=== PATIENT | male | born 1965 | race Caucasian/White ===

== ENCOUNTER 2022-01-29 10:44 | Outpatient (CLI) | payer BC, SELFPAY ==
[2022-01-29 10:51] VITALS: BP 142/84; PULSE 72; RESP 16; O2SAT 97
[2022-01-29] MEDS: TETRACAINE 0.5% OPHTH 1 DROP EYE-LEFT ×3 (10:55→11:42)
[2022-01-29] MEDS: BRIMONIDINE TARTRATE 0.2% OPHTH 1 DROP EYE-LEFT ×2 (10:57→11:49)
--- NOTE | 2022-01-29 13:05 | W.PM.OPTPROC ---
Procedure Note Date of procedure: 01/29/22 Will [facility] bill your pro fee for this procedure?: Yes Procedure Description: SURGEON: Cheryl Rosenthal MD PREOPERATIVE DIAGNOSIS: Posterior capsular opacity, left eye POSTOPERATIVE DIAGNOSIS: Posterior capsular opacity, left eye PROCEDURE: YAG laser capsulotomy, left eye ANESTHESIA: Topical. ESTIMATED BLOOD LOSS: None PATHOLOGY SPECIMEN: None COMPLICATIONS: None INDICATIONS: See consult note for details. The risks, benefits and alternatives of the procedure were explained to the patient, who elected to proceed and signed informed consent to do so. PROCEDURE: The patient was brought to the pre-holding area where the left eye was identified as the operative eye. I placed my initials above this eye. The patient received 2 sets of 1 drop of 0.5% tetracaine and 1 drop of 1% tropicamide. They also received 1 drop of 0.2% brimonidine. They received 1 drop of 0.5% tetracaine immediately prior to bringing them back for the procedure. The patient was then brought to the procedure room where the left eye was again identified as the operative eye. A YAG Reinier capsulotomy lens was placed on the eye. The laser was administered using a total number of 11 shots with an energy of 2.4 mJ per shot for a total energy of 26 mJ. The patient tolerated the procedure well. DISPOSITION: The patient was taken back to the pre-holding area and given 1 drop of 0.2% brimonidine in the left eye. They were discharged to home in stable condition. The patient was instructed to call me or go to the emergency department with any sudden change, including dramatic loss of vision, severe pain in the eye or eyebrow region, nausea, or vomiting. The patient was instructed to use the 0.2% brimonidine 1 drop 2 times a day in the left eye for 1 week. The patient will follow up in the clinic in 1-2 weeks Surgeon: Cheryl Rosenthal MD
== END 2022-01-29 11:50 | disposition home or self-care (01) ==
LOC: EYE PRC 10:44
PROVIDERS: PCP Family Medicine; Visit Provider Ophthalmology
DX: H26.9 Unspecified cataract (principal)
CPT/HCPCS: 66821; A9270

== ENCOUNTER 2022-04-09 13:00 | Outpatient (CLI) | payer BC, SELFPAY ==
[2022-04-09 10:37] LABS: Albumin* 4.4 g/dL (3.3-5.0)
[2022-04-09 10:38] LABS: Chloride* 109 mmol/L (96-114); Potassium* 4.7 mmol/L (3.6-5.1); Sodium* 142 mmol/L (135-149)
[2022-04-09 10:40] LABS: Aspartate Amino Transferase* 30 U/L (12-35); Bilirubin Total* 0.6 mg/dL (0.1-1.5); Carbon Dioxide* 29 mmol/L (20-32); Creatinine* 0.8 mg/dL (0.5-1.5); Estimated Glomerular Filt Rate 104 ml/min
[2022-04-09 10:41] LABS: Alanine Aminotransferase* 42 U/L (4-50); Alkaline Phosphatase* 82 U/L (40-150); Blood Urea Nitrogen* 15 mg/dL (7-30); Calcium* 9.5 mg/dL (8.4-10.6); Glucose* 105 mg/dL (60-115); HDL Cholesterol* 55 mg/dL (>=40); Triglycerides* 75 mg/dL (40-149)
[2022-04-09 11:13] LABS: PSA Screen* 2.28 ng/mL (0.10-4.00)
[2022-04-09 19:09] LABS: Cholesterol* 146 mg/dL (90-199); LDL Cholesterol Calculated 76 mg/dL (<100)
== END 2022-04-09 13:01 | disposition home or self-care (01) ==
PROVIDERS: PCP Family Medicine; Visit Provider Family Medicine
DX: Z00.00 Encounter for general adult medical examination without abnormal findings (principal); E78.5 Hyperlipidemia, unspecified; R73.01 Impaired fasting glucose; Z12.5 Encounter for screening for malignant neoplasm of prostate
CPT/HCPCS: 80053; 80061; 84153

== ENCOUNTER 2023-04-13 07:25 | Outpatient (CLI) | payer BC, SELFPAY ==
--- OUTSIDE RECORDS SUMMARY | 2023-04-15 09:34 | XMS_ITS | Clinical Summary ---
Author Name Unknown Organization [employer] [facility] [employer] Address [place], [place] [address] Care Team Providers Care Tomato Grader Name Role Phone Tomy Doe MD Primary Care Provider [phone] Allergies No known active allergies Medications Medication Sig Dispensed Refills Start Date End Date Status warfarin (COUMADIN) 7.5 mg tablet Take 7.5 mg by mouth once daily. 11.25 mg Tuesdays & , all other days 7.5 mg 0 04/14/2012 Active atropine (ISOPTO ATROPINE) 1 % ophthalmic solution Place 1 drop into right eye at bedtime 2 mL 0 02/23/2020 Active erythromycin ophthalmic ointment 0.5% Place 1 strip into right eye 2 times daily 3.5 g 0 02/23/2020 Active prednisoLONE acetate 1% ophthalmic (ECONOPRED PLUS, PRED FORTE, OMNIPRED) suspension Place 1 drop into right eye 4 times daily. SHAKE WELL 10 mL 0 02/23/2020 Active ibuprofen (ADVIL; MOTRIN) 600 mg tablet Take 1 tablet by mouth 3 times daily with meals. 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 Immunizations Name Administration Dates Next Due AMB Influenza, IIV4 PF (=>6 mos Flulaval,Fluzone Fluarix)(Flu Clinic Only) 02/09/2014 Tdap 09/18/2008 Family History Medical History Relation Name Comments Cancer-prostate Father early 60s Good Health Father Diabetes Maternal Grandmother Good Health Mother Other Paternal Uncle prostatic hyp ertrophy Relation Name Status Comments Father Alive Maternal Grandmother Mother Alive Paternal Uncle Social History Tobacco Use Types Packs/Day Years Used Date Smoking Tobacco: Never Smokeless Tobacco: Never Tobacco Cessation:Counseling Given: Yes Alcohol Use Standard Drinks/Week Comments Yes 0 (1 standard drink = 0.6 oz pur e alcohol) 2-3 drinks a week Sex and Gender Information Value Date Recorded Sex Assigned at Not on file Gender Identity Not on file Sexual Orientation Not on file Obstetrics History Last Filed Vital Signs Vital Sign Reading Time Taken Comments Blood Pressure 124/77 02/23/2020 11:30 AM JANITORIAL CLEANER Pulse 53 02/23/2020 11:30 AM JANITORIAL CLEANER Temperature 36.1 ??C (97 ??F) 02/23/2020 8:24 AM JANITORIAL CLEANER Respiratory Rate 16 02/23/2020 11:30 AM JANITORIAL CLEANER Oxygen Saturation 98% 02/23/2020 11:30 AM JANITORIAL CLEANER Inhaled Oxygen Concentration - - Weight 95.3 kg (210 lb) 08/13/2015 6:20 PM CDT Height 185.4 cm (6' 1) 08/13/2015 6:20 PM CDT Body Mass Index 27.71 08/13/2015 6:20 PM CDT Plan of Treatment Health Maintenance Due Date Last Done Comments COVID-19 vaccine series (#1) 1965 HIV for age 15-65 1980 Hepatitis C screening for ag e 18-79 06/08/1983 Colonoscopy through age 75 2010 Zoster (shingles) series for age 50+ (1 of 2) 06/08/2015 BMI (ht and wt on same day) for age 18+ 07/08/2016 07/09/2015 Depression screening for age 12+ 07/08/2016 07/09/2015 Lipids for age 45-75 04/28/2017 04/28/2012, 11/23/2008 Tetanus booster 09/18/2018 09/18/2008 Influenza for age 50-64 12/05/2022 02/09/2014 Tdap Completed 09/18/2008 Pneumococcal series for age 6-64 Aged Out No longer eligible b ased on patient's age to complete this topic Medical Devices Implanted Type Area Consumer Safety Inspector Device Identifier Shelf Expiration Date Model / Serial / Lot Strip Silcn 0.75x3.5x125 [id number] - [id number] Implanted:Qty: 1 on 09/18/2009 at [facility] Left: Eye [employer] 10/05/2015 S2970# / / [id number] Sleeve Silcn 1.00i.D.X2.1mm Od Sty70 S3018 [employer]ian - [id number] Implanted:Qty: 1 on 09/18/2009 at [facility] Left: Eye [employer] 10/05/2015 S3018# / / [id number] Lens Iol Zcb00 20.5 - [id number] Implanted:Qty: 1 on 08/15/2015 by Kendall Leonard MD at [facility] Right: Eye [employer] 06/14/2019 ZCB00# / [id number] / Band Circling .60x2.2k237ti X [id number] [employer]ian - [id number] Implanted:Qty: 1 on 02/23/2020 by Yuan Maya MD at [facility] Right: Eye [employer] 12/23/2025 S2987# / / [id number] Tire 7.0/2.5mm [id number] Groove-Concave S2986 [employer]ian - [id number] Implanted:Qty: 1 on 02/23/2020 by Yuan Maya MD at [facility] Right: Eye [employer] 10/23/2023 S2986# / / [id number] Sleeve Silcn 1.00i.D.X2.1mm Od Sty70 S3018 [employer]ian - [id number] Implanted:Qty: 1 on 02/23/2020 by Yuan Maya MD at [facility] Right: Eye [employer] 05/25/2026 S3018# / / [id number] Advance Directives Latest Code Status on File Code Status Date Activated Date Inactivated Comments Full Code 02/23/2020 8:02 AM 02/23/2020 1:55 PM Question Answer Comments Code Status Discussion: Not Discussed Code Status History Code Status Date Activated Date Inactivated Comments Full Code 08/15/2015 1:53 PM 08/15/2015 5:41 PM Full Code 09/18/2009 3:41 PM 09/18/2009 8:45 PM Care Teams Tomato Grader Relationship Specialty Start Date End Date Tomy Doe MD [address] [facility] [place] [id number] PCP - General Family Practice 02/23/20
== END 2023-04-13 07:26 | disposition home or self-care (01) ==
LOC: NFLDREF 04-15 09:06
PROVIDERS: PCP Family Medicine; Referring Provider Family Medicine; Visit Provider Family Medicine
DX: Z13.220 Encounter for screening for lipoid disorders (principal); Z79.01 Long term (current) use of anticoagulants; Z12.5 Encounter for screening for malignant neoplasm of prostate
CPT/HCPCS: 80053; 80061; G0103

== ENCOUNTER 2023-07-29 12:38 | Outpatient (CLI) | payer BC, SELFPAY ==
--- OUTSIDE RECORDS SUMMARY | 2023-07-29 12:40 | XMS_ITS | Clinical Summary ---
Author Name Unknown Organization [employer] [facility] [employer] [facility] Address [place], [place] [address] Care Team Providers Care Cobol Developer Name Role Phone Tomy Doe MD Primary Care Provider [phone] Allergies No known active allergies Medications Medication Sig Dispensed Refills Start Date End Date Status warfarin (COUMADIN) 7.5 mg tablet Take 7.5 mg by mouth once daily. 11.25 mg Tuesdays & , all other days 7.5 mg 0 04/14/2012 Active atropine (ISOPTO ATROPINE) 1 % ophthalmic solution Place 1 drop into right eye at bedtime 2 mL 02/23/2020 Active erythromycin ophthalmic ointment 0.5% Place 1 strip into right eye 2 times daily 3.5 g 02/23/2020 Active prednisoLONE acetate 1% ophthalmic (ECONOPRED PLUS, PRED FORTE, OMNIPRED) suspension Place 1 drop into right eye 4 times daily. SHAKE WELL 10 mL 02/23/2020 Active ibuprofen (ADVIL; MOTRIN) 600 mg tablet Take 1 tablet by mouth 3 times daily with meals. 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 [facility] (current) use of anticoagulants 2006 Other venous [...] Comments Blood Pressure 124/77 02/23/2020 11:30 AM SPEECH AND HEARING CLINIC DIRECTOR Pulse 53 02/23/2020 11:30 AM SPEECH AND HEARING CLINIC DIRECTOR Temperature 36.1 ??C (97 ??F) 02/23/2020 8:24 AM SPEECH AND HEARING CLINIC DIRECTOR Respiratory Rate 16 02/23/2020 11:30 AM SPEECH AND HEARING CLINIC DIRECTOR Oxygen Saturation 98% 02/23/2020 11:30 AM SPEECH AND HEARING CLINIC DIRECTOR Inhaled Oxygen Concentration - - Weight 95.3 kg (210 lb) 08/13/2015 6:20 PM CDT Height 185.4 cm (6' 1) 08/13/2015 6:20 PM CDT Body Mass Index 27.71 08/13/2015 6:20 PM CDT Plan of Treatment Health Maintenance Due Date Last Done Comments HIV for age 15-65 1980 Hepatitis C screening for ag e 18-79 06/08/1983 Colonoscopy through age 75 2010 Zoster (shingles) series for age 50+ (1 of 2) 06/08/2015 BMI (ht and wt on same day) for age 18+ 07/08/2016 07/09/2015 Depression screening for age 12+ 07/08/2016 07/09/2015 Lipids for age 45-75 04/28/2017 04/28/2012, 11/23/2008 Tetanus booster 09/18/2018 09/18/2008 COVID-19 vaccine series (2022- season) 2022 Influenza for age 50-64 12/06/2023 02/09/2014 Tdap Completed 09/18/2008 Pneumococcal series for age 6-64 Aged Out No longer eligible b ased on patient's age to complete this topic Medical Devices Implanted Type Area Ring Rolling Machine Operator Device Identifier Shelf Expiration Date Model / Serial / Lot Strip Silcn 0.75x3.5x125 [id number] - [id number] Implanted:Qty: 1 on 09/18/2009 at [facility] Left: Eye [employer] 10/05/2015 S2970# / / [id number] Sleeve Silcn 1.00i.D.X2.1mm Od Sty70 S3018 [employer] - [id number] Implanted:Qty: 1 on 09/18/2009 at [facility] Left: Eye [employer] 10/05/2015 S3018# / / [id number] Lens Iol Zcb00 20.5 - [id number] Implanted:Qty: 1 on 08/15/2015 by Kendall Leonard MD at [facility] Right: Eye [employer] 06/14/2019 ZCB00# / [id number] / Band Circling .60x2.3a995dg X [id number] S2987 [employer] - [id number] Implanted:Qty: 1 on 02/23/2020 by Yuan Maya MD at [facility] Right: Eye [employer] 12/23/2025 S2987# / / [id number] Tire 7.0/2.5mm [id number] Groove-Concave S2986 [employer] - [id number] Implanted:Qty: 1 on 02/23/2020 by Yuan Maya MD at [facility] Right: Eye [employer] 10/23/2023 S2986# / / [id number] Sleeve Silcn 1.00i.D.X2.1mm Od Sty70 S3018 [employer]ian - [id number] Implanted:Qty: 1 on 02/23/2020 by Yuan Maya MD at [facility] Right: Eye [employer] 05/25/2026 S3018# / / [id number] Procedures Procedure Name Priority Date/Time Associated Diagnosis Comments LIPID PANEL W REFLEX MEASURED LDL Routine 04/28/2012 8:04 AM SPEECH AND HEARING CLINIC DIRECTOR Screening for ischemic heart disease from Last 3 Months or Most Recently Relevant to Health Maintenance Results * (ABNORMAL) LIPID PANEL W REFLEX MEASURED LDL (04/28/2012 8:04 AM SPEECH AND HEARING CLINIC DIRECTOR) CHOLESTEROL,TOTAL 217(H) 100 - 199 mg/dL 04/28/2012 9:04 AM [facility] TRIGLYCERIDES 80 <150 mg/dL 04/28/2012 9:04 AM [facility] HDL CHOLESTEROL 58 >40 mg/dL 3 9:04 AM [facility] NON-HDL CHOLESTEROL 159(H) <145 mg/dl 04/28/2012 9:04 AM [facility] CHOL/HDL RATIO 3.74 <4.50 04/28/2012 9:04 AM [facility] LDL CHOLESTEROL 143(H) <=130 mg/dL 04/28/2012 9:04 AM [facility] PATIENT STATUS FASTING 04/28/2012 9:04 AM [facility] Blood specimen (specimen) BLOOD SPECIMEN / Unknown 04/28/2012 8:04 AM SPEECH AND HEARING CLINIC DIRECTOR 04/28/2012 8:04 AM SPEECH AND HEARING CLINIC DIRECTOR Royal Bourgeois MD CHEMISTRY [facility] [address] [place] [address] [place] [address] from Last 3 Months or Most Recently Relevant to Health Maintenance Advance Directives * Full Code (Latest Code Status on File) Date Activated Date Inactivated Comments 02/23/2020 8:02 AM 02/23/2020 1:55 PM Question Answer Comments Code Status Discussion: Not Discussed * Full Code Date Activated Date Inactivated Comments 08/15/2015 1:53 PM 08/15/2015 5:41 PM * Full Code Date Activated Date Inactivated Comments 09/18/2009 3:41 PM 09/18/2009 8:45 PM Care Teams Cobol Developer Relationship Specialty Start Date End Date Tomy Doe MD [address] [place] [address] PCP - General Family Practice 02/23/20
--- NOTE | 2023-07-29 13:00 | MR_ITS ---
[address] [address] Phone:?[phone] Fax:?[phone] Referring Physician Information: Jaden Cano M.D. [address] [facility] [address] Phone:?[phone] Fax:?[phone] Patient:Kamron Kathleen D.O.B:?1965 Sex:?Male Phone:?[phone] [facility] MRN:?[id number] Exam Date:?07/29/2023 EXAM: MRI of the LEFT KNEE, without contrast CLINICAL INFORMATION: Male, 58 years old, with left knee pain. INDICATION: Evaluate knee pain. PRIOR SURGERY: None reported. PLAIN FILMS: Left knee radiographs dated 07/24/2023. COMPARISONS: No prior MRIs available. TECHNICAL INFORMATION: Using a 1.5T MR scanner and a localizing surface coil: sagittals: PD, PDFS coronals: PD, T2FS axials: PD, PDFS SEDATION: None CONTRAST: None FINDINGS: Knee joint: Effusion: Small left knee effusion. Popliteal cyst: Small, unruptured popliteal (Shine's) cyst. Loose bodies: None. Subcutaneous and extra-articular soft tissues: Unremarkable. Ligaments: ACL: Intact ACL anteromedial and posterolateral bundles, without sprain or tear. PCL: Intact PCL, without acute or chronic injury. MCL: Intact MCL superficial and deep layers, without injury. LCL: Intact LCL, without injury. Posterolateral corner: No posterolateral corner soft tissue injury. Popliteus, biceps femoris, iliotibial band, popliteofibular ligament and lateral gastrocnemius are intact. Posteromedial corner: Mild pes anserine bursitis (axial T2FS series 4 image 32 and coronal STIR series 8 image 22). Semimembranosus, pes anserine tendons and posterior oblique ligament are without injury or tendinopathy. Extensor mechanism: Patellar tendon: Intact, without tendinopathy. Quadriceps tendon: Mild quadriceps insertional tendinopathy, without tear. Retinacula: Medial and lateral retinacula are intact. Fat pads: Unremarkable infrapatellar Hoffa's, quadriceps and prefemoral fat pads. Medial compartment: Medial meniscus: Apical free edge and undersurface tearing at the posterior horn/body junction is present over a length of 1.7 cm (sagittal PDFS series 6 images 7-10 and coronal STIR series 8 images 18-22). A 1.4 x 0.5 x 0.4 cm meniscal flap fragment has extruded into the meniscotibial recess (coronal STIR series 8 image 21 and axial T2FS series 4 images 24 & 25). Meniscal extrusion measures 5 mm. Medial femoral condyle & tibial plateau: Broad-based mild grade II chondromalacia throughout the central, weightbearing aspect of the medial compartment, without reactive osseous changes. Lateral compartment: Lateral meniscus: No articular surface, meniscosynovial junction or root tear. No displacement, extrusion or parameniscal cyst. Lateral femoral condyle: No chondromalacia or osteochondral abnormality. Lateral tibial plateau: No chondromalacia or osteochondral abnormality. Patellofemoral joint: Patella: No chondromalacia or osteochondral abnormality. Trochlea: No chondromalacia or osteochondral abnormality. Proximal tibiofibular joint: Unremarkable, without evidence of ligament sprain injury, joint effusion or adjacent marrow edema. Bones: No stress/occult fractures or other marrow edema/pathology. IMPRESSION: 1. Apical free edge and undersurface tearing at the posterior horn/body junction of the medial meniscus measuring 1.7 cm, with 5 mm of meniscal extrusion and a 1.4 x 0.5 x 0.47 m flap fragment that has extruded into the meniscotibial recess. 2. Small knee joint effusion with a small, unruptured popliteal (Shine's) cyst. 3. Mild pes anserine bursitis. 4. Mild quadriceps tendinopathy, without tear. 5. Mild grade II chondromalacia of the medial compartment, without reactive osseous changes. 6. No cruciate or collateral ligament sprain/tear. 7. No lateral meniscal tear. 8. No osteochondral abnormality of the lateral or patellofemoral compartment. BC Electronically signed on 07/30/2023 7:16:00 AM by Junior Dyer M.D.
== END 2023-07-29 12:39 | disposition home or self-care (01) ==
LOC: MRI 12:38
PROVIDERS: PCP Family Medicine; Visit Provider Orthopaedic Surgery Sports Medicine
DX: M25.562 Pain in left knee (principal); S83.242A Other tear of medial meniscus, current injury, left knee, initial encounter; M25.462 Effusion, left knee; M94.262 Chondromalacia, left knee
CPT/HCPCS: 73721

== ENCOUNTER 2023-08-10 07:12 | Day surgery (SDC) | payer BC, SELFPAY ==
[2023-08-10] VITALS (13 sets, daily range): BP systolic 99–149; BP diastolic 61–95; PULSE 38–82; RESP 12–16; TEMP 36.3–36.6; O2SAT 94–100; BMI 28.4
--- OUTSIDE RECORDS SUMMARY | 2023-08-10 07:14 | XMS_ITS | Clinical Summary ---
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 [facility] (current) use of anticoagulants 2006 Other venous [...] Comments Blood Pressure 124/77 02/23/2020 11:30 AM BOOK SEWING MACHINE OPERATOR Pulse 53 02/23/2020 11:30 AM BOOK SEWING MACHINE OPERATOR Temperature 36.1 ??C (97 ??F) 02/23/2020 8:24 AM BOOK SEWING MACHINE OPERATOR Respiratory Rate 16 02/23/2020 11:30 AM BOOK SEWING MACHINE OPERATOR Oxygen Saturation 98% 02/23/2020 11:30 AM BOOK SEWING MACHINE OPERATOR Inhaled Oxygen Concentration - - Weight 95.3 [...] this topic Medical Devices Implanted Type Area Nuclear Officer Device Identifier Shelf Expiration Date Model / Serial / Lot Strip Silcn 0.75x3.5x125 [id number] - [id number] Implanted:Qty: 1 on 09/18/2009 at [facility] Left: Eye [employer] 10/05/2015 S2970# / / [id number] Sleeve Silcn 1.00i.D.X2.1mm Od Sty70 S3018 [employer] - [id number] Implanted:Qty: 1 on 09/18/2009 at [facility] Left: Eye [employer] 10/05/2015 S3018# / / [id number] Lens Iol Zcb00 20.5 - [id number] Implanted:Qty: 1 on 08/15/2015 by Kendall Leonard MD at [facility] Right: Eye [employer] 06/14/2019 ZCB00# / [id number] / Band Circling .60x2.3x342zs X [id number] S2987 [employer] - [id number] Implanted:Qty: 1 on 02/23/2020 by uYan Maya MD at [facility] Right: Eye [employer] 12/23/2025 S2987# / / [id number] Tire 7.0/2.5mm [id number] Groove-Concave S2986 [employer] - [id number] Implanted:Qty: 1 on 02/23/2020 by Yuan Maya MD at [facility] Right: Eye [employer] 10/23/2023 S2986# / / [id number] Sleeve Silcn 1.00i.D.X2.1mm Od Sty70 S3018 [employer] - [id number] Implanted:Qty: 1 on 02/23/2020 by Yuan Maya MD at [facility] Right: Eye [employer] 05/25/2026 S3018# / / [id number] Procedures Procedure Name Priority Date/Time Associated Diagnosis Comments LIPID PANEL W REFLEX MEASURED LDL Routine 04/28/2012 8:04 AM BOOK SEWING MACHINE OPERATOR Screening for ischemic heart disease from Last 3 Months or Most Recently Relevant to Health Maintenance Results * (ABNORMAL) LIPID PANEL W REFLEX MEASURED LDL (04/28/2012 8:04 AM BOOK SEWING MACHINE OPERATOR) CHOLESTEROL,TOTAL 217(H) 100 - 199 mg/dL 04/28/2012 9:04 AM [facility] TRIGLYCERIDES 80 <150 mg/dL 04/28/2012 9:04 AM [facility] HDL CHOLESTEROL 58 >40 mg/dL 3 9:04 AM [facility] NON-HDL CHOLESTEROL 159(H) <145 mg/dl 04/28/2012 9:04 AM [facility] CHOL/HDL RATIO 3.74 <4.50 04/28/2012 9:04 AM [facility] LDL CHOLESTEROL 143(H) <=130 mg/dL 04/28/2012 9:04 AM [facility] PATIENT STATUS FASTING 04/28/2012 9:04 AM [facility] Blood specimen (specimen) BLOOD SPECIMEN / Unknown 04/28/2012 8:04 AM BOOK SEWING MACHINE OPERATOR 04/28/2012 8:04 AM BOOK SEWING MACHINE OPERATOR Royal Bourgeois MD CHEMISTRY [facility] [address] [place] [address] [place] [address] from Last 3 Months or Most Recently [...] 3:41 PM 09/18/2009 8:45 PM Care Teams Bundle Tier And Labeler Relationship Specialty Start Date End Date Tomy Doe MD [address] [place] [address] PCP - General Family Practice 02/23/20
[2023-08-10] MEDS: SODIUM CHLORIDE 0.9 % (FLUSH) 10 ML SYRINGE IVF (07:30)
[2023-08-10] MEDS: LACTATED RINGERS 1000 ML 1,000 ML 100 ML IV ×2 (07:30→09:07)
[2023-08-10 07:40] LABS: INR, Point of Care* 1.3 (0.8-1.4)
[2023-08-10] MEDS: CEFAZOLIN 2 GM in 0.9 % SODIUM CHLORIDE Mini-bag 100 ML IVPB (08:40)
[2023-08-10] MEDS: ROPIVACAINE 0.5% 30 ML 150 MG INJECTION (09:20)
--- NOTE | 2023-08-10 09:23 | P.ORPRC_ITS ---
Procedure Note Date of procedure: 08/10/23 Procedure: PREOPERATIVE DIAGNOSIS: 1. Left knee medial meniscus tear POSTOPERATIVE DIAGNOSIS: 1. Left knee medial meniscus tear PROCEDURE: 1. Left knee arthroscopic partial medial meniscectomy SURGEON: Jaden Cano M.D. ADMINISTRATIVE ASSISTANT FRONT DESK: Mat Ryan PA-C. Of note, an clinical trial assistant was critical for this case to aid in patient positioning, knee manipulation, instrument exchange, and closure. ANESTHESIA: Spinal EBL: 2ml TOURNIQUET: 30 min at 300 torr COMPLICATIONS: None evident INDICATIONS: The patient is a pleasant 58-year-old male who has experienced left knee pain particularly with any twisting or turning. Physical exam was concerning for medial meniscus tear, this was confirmed on MRI. Additionally, attempted nonoperative management has been tried, and failed. Thus, surgery was recommended. FINDINGS: Complex tearing posterior horn medial meniscus approaching the midbody. The posterior root was intact. This primarily involved the mid to inferior portion of the posterior horn meniscus. Lateral meniscus was intact. ACL and PCL intact and robust. Articular cartilage throughout all 3 compartments looked quite healthy. No loose bodies. Shine cyst fluid was encountered and decompressed during the surgery. DESCRIPTION OF PROCEDURE: After a thorough discussion of risks, benefits, and alternatives, the patient was brought to the operating room and placed upon the operating table. Induction of anesthesia was undertaken as previously noted. 2g iv Ancef was administered within 1 hr of incision preoperatively. Appropriate time-out was performed identifying proper patient, site, and procedure. The left lower extremity was prepped and draped in the appropriate sterile fashion using ChloraPrep. The limb was exsanguinated and tourniquet inflated. Anterolateral and anteromedial portals were established with an 11 blade, and a diagnostic arthroscopy was performed. This identified the findings as noted above. Following the diagnostic arthroscopy, a partial medial menisectomy was performed with the combination of basket forceps and a motorized shaver. Following this, the meniscus was re-probed and found to be stable. Approximately 20-25 % of the overall meniscus required resection. At this stage, the shaver was reinserted into the suprapatellar pouch and all remaining meniscal debris was evacuated. Instruments were removed, excess fluid was drained, and closure performed with 4-0 Monocryl with Steri-Strips. Dressings were applied, the tourniquet deflated, and the patient was awoken from anesthesia and transferred to the PACU in stable condition. PLAN: 1. Weightbear as tolerated operative extremity. Crutch / walker ambulation assistance PRN. Straight leg raise to be initiated starting tomorrow by the patient. 2. Ice, acetominophen and/or ibuprofen, and oxycodone for pain as needed. 3. Knee range of motion and quad sets/straight leg raise regularly 4. Follow up with PA visit in 7-10 days. for a wound check. Initiate physical therapy at that time
--- NOTE | 2023-08-10 09:24 | W.PM.H&PU ---
History & Physical Update History & Physical Update H&P Reviewed and patient assessed: No changes noted
--- NOTE | 2023-08-10 09:36 | W.ANESCHARGE ---
Anesthesia Charges Start Date/Time Anesthesia Start Date: 08/10/23 Anesthesia Start Time: 08:33 Stop Date/Time Anesthesia Stop Date: 08/10/23 Anesthesia Stop Time: 09:35
--- NOTE | 2023-08-10 10:13 | W.ANESCHARGE ---
Anesthesia Charges Start Date/Time Anesthesia Start Date: 08/10/23 Anesthesia Start Time: 08:33 Stop Date/Time Anesthesia Stop Date: 08/10/23 Anesthesia Stop Time: 09:35
== END 2023-08-10 11:23 | disposition home or self-care (01) ==
LOC: OR 07:13
PROVIDERS: Anesthesiology; PCP Family Medicine; Visit Provider Orthopaedic Surgery Sports Medicine
PROC: (CPT 29870; principal; 2023-08-10 08:45)
DX: S83.232A Complex tear of medial meniscus, current injury, left knee, initial encounter (principal)
CPT/HCPCS: 29881; 01400; 85610; J0690; J2250; J2405; J2704; J2795; J3010; J7120

== ENCOUNTER 2023-08-20 09:56 | Outpatient (CLI) | payer BC, SELFPAY ==
--- OUTSIDE RECORDS SUMMARY | 2023-08-20 10:00 | XMS_ITS | Clinical Summary ---
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 terminal computer operator (current) use of anticoagulants 2006 Other venous [...] Comments Blood Pressure 124/77 02/23/2020 11:30 AM ADVANCED PRACTICE PROFESSIONAL Pulse 53 02/23/2020 11:30 AM ADVANCED PRACTICE PROFESSIONAL Temperature 36.1 ??C (97 ??F) 02/23/2020 8:24 AM ADVANCED PRACTICE PROFESSIONAL Respiratory Rate 16 02/23/2020 11:30 AM ADVANCED PRACTICE PROFESSIONAL Oxygen Saturation 98% 02/23/2020 11:30 AM ADVANCED PRACTICE PROFESSIONAL Inhaled Oxygen Concentration - - Weight 95.3 [...] this topic Medical Devices Implanted Type Area Cabinet Builder Device Identifier Shelf Expiration Date Model / Serial / Lot Strip Silcn 0.75x3.5x125 [id number] - [id number] Implanted:Qty: 1 on 09/18/2009 at [facility] Left: Eye [employer] 10/05/2015 S2970# / / [id number] Sleeve Silcn 1.00i.D.X2.1mm Od Sty70 S3018 [employer]ian - [id number] Implanted:Qty: 1 on 09/18/2009 at [facility] Left: Eye [employer] 10/05/2015 S3018# / / [id number] Lens Iol Zcb00 20.5 - [id number] Implanted:Qty: 1 on 08/15/2015 by Kendall Leonard MD at [facility] Right: Eye [employer] 06/14/2019 ZCB00# / [id number] / Band Circling .60x2.8e134pg X [id number] S2987 Lab[employer]ian - [id number] Implanted:Qty: 1 on 02/23/2020 by Yuan Maya MD at [facility] Right: Eye [employer] 12/23/2025 S2987# / / [id number] Tire 7.0/2.5mm [id number] Groove-Concave S2986 Lab[employer]ian - [id number] Implanted:Qty: 1 on 02/23/2020 by Yuan Maya MD at [facility] Right: Eye [employer] 10/23/2023 S2986# / / [id number] Sleeve Silcn 1.00i.D.X2.1mm Od Sty70 S3018 [employer]ian - [id number] Implanted:Qty: 1 on 02/23/2020 by Yuan Maya MD at [facility] Right: Eye [employer] 05/25/2026 S3018# / / [id number] Procedures Procedure Name Priority Date/Time Associated Diagnosis Comments LIPID PANEL W REFLEX MEASURED LDL Routine 04/28/2012 8:04 AM ADVANCED PRACTICE PROFESSIONAL Screening for ischemic heart disease from Last 3 Months or Most Recently Relevant to Health Maintenance Results * (ABNORMAL) LIPID PANEL W REFLEX MEASURED LDL (04/28/2012 8:04 AM ADVANCED PRACTICE PROFESSIONAL) CHOLESTEROL,TOTAL 217(H) 100 - 199 mg/dL 04/28/2012 9:04 AM [facility] TRIGLYCERIDES 80 <150 mg/dL 04/28/2012 9:04 AM [facility] HDL CHOLESTEROL 58 >40 mg/dL 3 9:04 AM [facility] NON-HDL CHOLESTEROL 159(H) <145 mg/dl 04/28/2012 9:04 AM [facility] CHOL/HDL RATIO 3.74 <4.50 04/28/2012 9:04 AM [facility] LDL CHOLESTEROL 143(H) <=130 mg/dL 04/28/2012 9:04 AM [facility] PATIENT STATUS FASTING 04/28/2012 9:04 AM [facility] Blood specimen (specimen) BLOOD SPECIMEN / Unknown 04/28/2012 8:04 AM ADVANCED PRACTICE PROFESSIONAL 04/28/2012 8:04 AM ADVANCED PRACTICE PROFESSIONAL Royal Bourgeois MD CHEMISTRY [facility] [address] [place] [address] [place] [address] from Last 3 Months or Most Recently [...] 3:41 PM 09/18/2009 8:45 PM Care Teams Manager Background Relationship Specialty Start Date End Date Tomy Doe MD [address] [place] [address] PCP - General Family Practice 02/23/20
--- NOTE | 2023-08-20 10:15 | US_ITS ---
Patient: FAISAL MIMS Facility:?[facility] Patient ID:?[id number] Site Patient ID:?[id number]. Site :?1965 Study:?US-Extremity Left LEV LT-08/20/2023 11:03:15 AM Ordering Physician:?WILFRID ORANTES Final Report: INDICATION: Left calf pain and swelling COMPARISON: There are no prior studies for comparison FINDINGS: Ultrasound of the venous drainage of the left lower extremity shows no evidence of deep venous thrombosis. There is normal antegrade flow from the posterior tibial and popliteal veins superiorly through the common femoral vein. There is normal augmentation and compressibility of these veins. The right common femoral vein is widely patent. IMPRESSION: 1. There is no evidence of left lower extremity deep venous thrombosis 2. Directed ultrasound of the area of pain was performed in the medial left calf. There is a fluid collection measuring 3.3 x 0.9 x 2.5 centimeters in this area which appears to be intramuscular. This could be a hematoma, seroma, abscess or a partial muscle tear. If this requires further imaging, MRI would be the study of choice. Dictated by Boubacar Coates MD @ 08/20/2023 11:19:36 AM Signed by:?Boubacar Coates MD @08/20/2023 11:19:36 AM (Electronic Signature)
== END 2023-08-20 09:57 | disposition home or self-care (01) ==
LOC: US 09:57
PROVIDERS: PCP Family Medicine; Visit Provider Physician Assistant Surgical
DX: M79.662 Pain in left lower leg (principal); R22.42 Localized swelling, mass and lump, left lower limb; Z79.01 Long term (current) use of anticoagulants; Z87.828 Personal history of other (healed) physical injury and trauma; Z98.890 Other specified postprocedural states
CPT/HCPCS: 93971

== ENCOUNTER 2023-09-09 07:30 | Outpatient (RCR) | payer BC, SELFPAY | END 2023-11-09 09:13 | disposition home or self-care (01) | PROVIDERS: PCP Family Medicine; Visit Provider Orthopaedic Surgery Sports Medicine | DX: Z98.890 Other specified postprocedural states (principal); M25.562 Pain in left knee; R53.1 Weakness; Z51.89 Encounter for other specified aftercare | CPT/HCPCS: 97110; 97161 ==

== ENCOUNTER 2023-12-21 18:41 | Outpatient (CLI) | payer BC, SELFPAY ==
--- OUTSIDE RECORDS SUMMARY | 2023-12-21 18:44 | XMS_ITS | Clinical Summary ---
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 intermediate teacher (current) use of anticoagulants 2006 Other venous [...] Comments Blood Pressure 124/77 02/23/2020 11:30 AM SENIOR IT SECURITY ANALYST Pulse 53 02/23/2020 11:30 AM SENIOR IT SECURITY ANALYST Temperature 36.1 ??C (97 ??F) 02/23/2020 8:24 AM SENIOR IT SECURITY ANALYST Respiratory Rate 16 02/23/2020 11:30 AM SENIOR IT SECURITY ANALYST Oxygen Saturation 98% 02/23/2020 11:30 AM SENIOR IT SECURITY ANALYST Inhaled Oxygen Concentration - - Weight 95.3 [...] Tetanus booster 09/18/2018 09/18/2008 COVID-19 vaccine series ( season) 2023 Influenza for age 50-64 12/06/2023 02/09/2014 Tdap Completed 09/18/2008 Pneumococcal series for age 6-64 Aged Out No longer eligible b ased on patient's age to complete this topic Medical Devices Implanted Type Area Daycare Manager Device Identifier Shelf Expiration Date Model / Serial / Lot Strip Silcn 0.75x3.5x125 [id number] - [id number] Implanted:Qty: 1 on 09/18/2009 at [facility] Left: Eye [employer] 10/05/2015 S2970# / / [id number] Sleeve Silcn 1.00i.D.X2.1mm Od Sty70 S3018 [employer] - [id number] Implanted:Qty: 1 on 09/18/2009 at [facility] Left: Eye [employer] 10/05/2015 S3018# / / [id number] Lens Iol Zcb00 20.5 - [id number] Implanted:Qty: 1 on 08/15/2015 by Kendall Leonard MD at [facility] Right: Eye [employer] 06/14/2019 ZCB00# / [id number] / Band Circling .60x2.6k446cl X [id number] S2987 Lab[employer]ian - [id number] Implanted:Qty: 1 on 02/23/2020 by Yuan Maya MD at [facility] Right: Eye [employer] 12/23/2025 S2987# / / [id number] Tire 7.0/2.5mm [id number] Groove-Concave S2986 [employer]ian - [id number] Implanted:Qty: 1 on 02/23/2020 by Yuan Maya MD at [facility] Right: Eye [employer] 10/23/2023 S2986# / / [id number] Sleeve Silcn 1.00i.D.X2.1mm Od Sty70 S3018 [employer]ian - [id number] Implanted:Qty: 1 on 02/23/2020 by Yuan Maya MD at [facility] Right: Eye [employer] 05/25/2026 S3018# / / [id number] Procedures Procedure Name Priority Date/Time Associated Diagnosis Comments LIPID PANEL W REFLEX MEASURED LDL Routine 04/28/2012 8:04 AM SENIOR IT SECURITY ANALYST Screening for ischemic heart disease from Last 3 Months or Most Recently Relevant to Health Maintenance Results * (ABNORMAL) LIPID PANEL W REFLEX MEASURED LDL (04/28/2012 8:04 AM SENIOR IT SECURITY ANALYST) CHOLESTEROL,TOTAL 217(H) 100 - 199 mg/dL 04/28/2012 9:04 AM [facility] TRIGLYCERIDES 80 <150 mg/dL 04/28/2012 9:04 AM [facility] HDL CHOLESTEROL 58 >40 mg/dL 3 9:04 AM [facility] NON-HDL CHOLESTEROL 159(H) <145 mg/dl 04/28/2012 9:04 AM [facility] CHOL/HDL RATIO 3.74 <4.50 04/28/2012 9:04 AM [facility] LDL CHOLESTEROL 143(H) <=130 mg/dL 04/28/2012 9:04 AM [facility] PATIENT STATUS FASTING 04/28/2012 9:04 AM [facility] Blood specimen (specimen) BLOOD SPECIMEN / Unknown 04/28/2012 8:04 AM SENIOR IT SECURITY ANALYST 04/28/2012 8:04 AM SENIOR IT SECURITY ANALYST Royal Bourgeois MD CHEMISTRY Performing Organization Address City/State/[facility] Co de Phone Number [facility] [address] [place] [address] from Last 3 Months or Most Recently [...] 3:41 PM 09/18/2009 8:45 PM Care Teams Towel Inspector Relationship Specialty Start Date End Date Tomy Doe MD [address] [place] [address] PCP - General Family Practice 02/23/20
--- NOTE | 2023-12-21 19:00 | MR_ITS ---
[address] [address] Phone:?[phone] Fax:?[phone] Referring Physician Information: Jaden Cano M.D. [address] [facility] [address] Phone:?[phone] Fax:?[phone] Patient:Kamron Kathleen D.O.B:?1965 Sex:?Male Phone:?[phone] [facility] MRN:?[id number] Exam Date:?12/21/2023 EXAM: MRI of the RIGHT KNEE, without contrast CLINICAL INFORMATION: Male, 58 years old, with knee pain. INDICATION: Evaluate for medial meniscus tear PRIOR SURGERY: None reported. PLAIN FILMS: Radiographs . COMPARISONS: No prior MRIs available. TECHNICAL INFORMATION: Using a 1.5T MR scanner and a localizing surface coil: sagittals: PD, PDFS coronals: PD, T2FS axials: PD, PDFS SEDATION: None CONTRAST: None FINDINGS: Knee joint: Effusion: Small sized right knee effusion. Popliteal cyst: Moderate fluid along the fascial planes of the posterior knee suggests popliteal cyst rupture. Loose bodies: None. Subcutaneous and extra-articular soft tissues: Mild prepatellar subcutaneous soft tissue edema. Ligaments: ACL: Intact ACL anteromedial and posterolateral bundles, without sprain or tear. PCL: Intact PCL, without acute or chronic injury. MCL: Intact MCL superficial and deep layers, without injury. LCL: Intact LCL, without injury. Posterolateral corner: No posterolateral corner soft tissue injury. Popliteus, biceps femoris, iliotibial band, popliteofibular ligament and lateral gastrocnemius are intact. Posteromedial corner: No posteromedial corner soft tissue injury. Semimembranosus, pes anserine tendons and posterior oblique ligament are without injury, tendinopathy or bursitis. Extensor mechanism: Patellar tendon: Intact, without tendinopathy. Quadriceps tendon: Intact, without tendinopathy. Retinacula: Medial and lateral retinacula are intact. Fat pads: Unremarkable infrapatellar Hoffa's, quadriceps and prefemoral fat pads. Medial compartment: Medial meniscus: Medial meniscus is abnormal in appearance. There is horizontal tearing with superior and inferior articular surface cleavage component (sagittal series 6 image 27). Horizontal tearing extends through the posterior horn/root, with the posterior root of the remaining predominantly intact. Confluent intrasubstance signal is present throughout the body segment. Tearing measures approximately 4.0 cm in length. 4 mm peripheral meniscal extrusion at the level of the body. Medial femoral condyle: Grade 3 chondral thinning along the posterior weightbearing medial femoral condyle measuring 1.9 cm in greatest dimension. No underlying marrow reactive edema. Medial tibial plateau: No chondromalacia or osteochondral abnormality. Lateral compartment: Lateral meniscus: No articular surface, meniscosynovial junction or root tear. No displacement, extrusion or parameniscal cyst. Lateral femoral condyle: No chondromalacia or osteochondral abnormality. Lateral tibial plateau: No chondromalacia or osteochondral abnormality. Patellofemoral joint: Patella: Shallow fissuring is noted to involve the mid lateral patellar facet without underlying marrow reactive edema. Trochlea: No chondromalacia or osteochondral abnormality. Proximal tibiofibular joint: Unremarkable, without evidence of ligament sprain injury, joint effusion or adjacent marrow edema. Bones: No fracture. Mild marrow edema underlying the region of medial meniscal tearing, likely reactive. IMPRESSION: 1. Horizontal cleavage tearing involving the superior and inferior articular surface of the body and posterior horn of the medial meniscus as described above. The posterior root is predominantly intact. 4 mm peripheral meniscal extrusion at the level of the body. 2. Grade III chondromalacia along the posterior weightbearing medial femoral condyle measuring 1.9 cm and greatest dimension. 3. Small region of shallow fissuring of the mid lateral patellar facet. 4. No lateral meniscus tear. Lateral compartment articular cartilage is intact. 5. No cruciate or collateral ligament sprain/tear. 6. Suspected popliteal cyst rupture with moderate fluid along the fascial planes of the posterior knee. 7. Small sized knee joint effusion. KME Electronically signed on 12/22/2023 12:45:00 PM by Shantell Rich M.D.
== END 2023-12-21 18:42 | disposition home or self-care (01) ==
LOC: MRI 18:42
PROVIDERS: PCP Family Medicine; Visit Provider Orthopaedic Surgery Sports Medicine
DX: M25.561 Pain in right knee (principal); S83.241A Other tear of medial meniscus, current injury, right knee, initial encounter; M94.261 Chondromalacia, right knee; M25.461 Effusion, right knee
CPT/HCPCS: 73721

== ENCOUNTER 2024-01-13 08:24 | Day surgery (SDC) | payer BC, SELFPAY ==
[2024-01-13] VITALS (11 sets, daily range): BP systolic 92–132; BP diastolic 58–97; PULSE 43–62; RESP 12–16; TEMP 36.3–36.5; O2SAT 94–100; BMI 27.9
[2024-01-13] MEDS: SODIUM CHLORIDE 0.9 % (FLUSH) 10 ML SYRINGE IVF (09:15)
[2024-01-13] MEDS: LACTATED RINGERS 1000 ML 1,000 ML 100 ML IV (09:15)
--- NOTE | 2024-01-13 10:50 | W.ANESCHARGE ---
Anesthesia Charges Start Date/Time Anesthesia Start Date: 01/13/24 Anesthesia Start Time: 11:20 Stop Date/Time Anesthesia Stop Date: 01/13/24 Anesthesia Stop Time: 12:22
[2024-01-13] MEDS: CEFAZOLIN 2 GM in 0.9 % SODIUM CHLORIDE Mini-bag 100 ML IVPB (11:25)
--- NOTE | 2024-01-13 11:30 | W.PM.H&PU ---
History & Physical Update History & Physical Update H&P Reviewed and patient assessed: No changes noted
[2024-01-13] MEDS: ROPIVACAINE 0.5% 30 ML 150 MG INJECTION (11:57)
--- NOTE | 2024-01-13 12:13 | P.ORPRC_ITS ---
Procedure Note Date of procedure: 01/13/24 Procedure: PREOPERATIVE DIAGNOSIS: 1. Right knee medial meniscus tear POSTOPERATIVE DIAGNOSIS: 1. Right knee medial meniscus tear PROCEDURE: 1. Right knee arthroscopic partial medial meniscectomy SURGEON: Jaden Cano M.D. ADVERTISING LAYOUT WORKER: RACHEL August. Of note, an executive assistant to general counsel was critical for this case to aid in patient positioning, knee manipulation, instrument exchange, and closure. ANESTHESIA: Spinal EBL: 25ml TOURNIQUET: 25 min at 300 torr COMPLICATIONS: None evident INDICATIONS: The patient is a pleasant 58-year-old male who has experienced right knee pain particularly with any twisting or turning. Physical exam was concerning for medial meniscus tear, this was confirmed on MRI. Additionally, attempted nonoperative management has been tried, and failed. Thus, surgery was recommended. FINDINGS: Complex tearing medial meniscus involving the posterior horn to midbody. Posterior root was intact. Grade 2 chondromalacia medial femoral condyle. Grade 3 chondromalacia patella median ridge and medial facet. Intact lateral meniscus. Intact lateral compartment articular cartilage. Intact ACL and PCL. No loose bodies. DESCRIPTION OF PROCEDURE: After a thorough discussion of risks, benefits, and a lternatives, the patient was brought to the operating room and placed upon the operating table. Induction of anesthesia was undertaken as previously noted. 2g iv Ancef was administered within 1 hr of incision preoperatively. Appropriate time-out was performed identifying proper patient, site, and procedure. The right lower extremity was prepped and draped in the appropriate sterile fashion using ChloraPrep. The limb was exsanguinated and tourniquet inflated. Anterolateral and anteromedial portals were established with an 11 blade, and a diagnostic arthroscopy was performed. This identified the findings as noted above. Following the diagnostic arthroscopy, a partial medial menisectomy was performed with the combination of basket forceps and a motorized shaver. Following this, the meniscus was re-probed and found to be stable. Approximately 25-30 % of the overall meniscus required resection. At this stage, the shaver was reinserted into the suprapatellar pouch and all remaining meniscal debris was evacuated. Instruments were removed, excess fluid was drained, and closure performed with 4-0 Monocryl with Steri-Strips. Dressings were applied, the tourniquet deflated, and the patient was awoken from anesthesia and transferred to the PACU in stable condition. PLAN: 1. Weightbear as tolerated operative extremity. Crutch / walker ambulation assistance PRN. 2. Ice, acetominophen and/or ibuprofen, and oxycodone for pain as needed. 3. Knee range of motion and quad sets/straight leg raise regularly 4. Follow up with PA visit in 1-2 weeks for a wound check and possibly to initiate physical therapy.
--- NOTE | 2024-01-13 12:21 | W.ANESCHARGE ---
Anesthesia Charges Start Date/Time Anesthesia Start Date: 01/13/24 Anesthesia Start Time: 11:20 Stop Date/Time Anesthesia Stop Date: 01/13/24 Anesthesia Stop Time: 12:22
== END 2024-01-13 13:57 | disposition home or self-care (01) ==
LOC: OR 08:26
PROVIDERS: PCP Family Medicine; Visit Provider Orthopaedic Surgery Sports Medicine
PROC: (CPT 29870; principal; 2024-01-13 12:00)
DX: S83.231A Complex tear of medial meniscus, current injury, right knee, initial encounter (principal)
CPT/HCPCS: 29881; 01400; J0690; J1100; J1885; J2250; J2405; J2704; J2795; J7120

== ENCOUNTER 2024-01-25 07:30 | Outpatient (RCR) | payer BC, SELFPAY | END 2024-04-08 09:44 | disposition home or self-care (01) | PROVIDERS: PCP Family Medicine; Visit Provider Orthopaedic Surgery Sports Medicine | DX: S83.241A Other tear of medial meniscus, current injury, right knee, initial encounter (principal); Z98.890 Other specified postprocedural states; M25.561 Pain in right knee; Z51.89 Encounter for other specified aftercare | CPT/HCPCS: 97110; 97140; 97161 ==

== ENCOUNTER 2024-04-01 08:12 | Outpatient (CLI) | payer BC, SELFPAY | END 2024-04-01 08:13 | disposition home or self-care (01) | LOC: NFLDREF 04-06 22:24 | PROVIDERS: PCP Family Medicine; Referring Provider Family Medicine; Visit Provider Family Medicine | DX: E78.5 Hyperlipidemia, unspecified (principal); Z12.5 Encounter for screening for malignant neoplasm of prostate | CPT/HCPCS: 80053; 80061; G0103 ==

== ENCOUNTER 2025-03-21 09:50 | Outpatient (CLI) | payer BC, SELFPAY | END 2025-03-21 09:51 | disposition home or self-care (01) | PROVIDERS: PCP Family Medicine; Visit Provider Family Medicine | DX: R05.3 Chronic cough (principal) | CPT/HCPCS: 86615 ==